=== PATIENT | male | born 1950 | race Caucasian/White ===

== ENCOUNTER 2017-02-14 12:59 | Outpatient (CLI) | payer MEDICARE | END 2017-02-14 13:00 | disposition home or self-care (01) | DX: M25.571 Pain in right ankle and joints of right foot (principal) ==

== ENCOUNTER 2017-04-18 13:50 | Outpatient (CLI) | payer MEDICARE | END 2017-04-18 13:51 | disposition home or self-care (01) | LOC: RT.S 13:50 | PROVIDERS: ATTEND Nurse Practitioner Family | DX: S82.39 Other fracture of lower end of tibia (principal) | CPT/HCPCS: 93005 ==

== ENCOUNTER 2017-04-18 14:43 | Outpatient (CLI) | payer MEDICARE | END 2017-04-18 14:44 | disposition home or self-care (01) | DX: S82.39 Other fracture of lower end of tibia (principal) ==

== ENCOUNTER 2017-04-18 14:48 | Outpatient (CLI) | payer MEDICARE | END 2017-04-18 23:59 | disposition home or self-care (01) | DX: S82.39 Other fracture of lower end of tibia (principal) ==

== ENCOUNTER 2017-05-29 06:13 | Day surgery (SDC) | payer MEDICARE ==
[2017-05-29] MEDS ORDERED: ceFAZolin 2 GM/50 ML 50 ML IV ONE (06:33)
[2017-05-29 06:46] VITALS: BP 161/99
[2017-05-29] MEDS ORDERED: LACTATED RINGERS 1,000 ML IV ONE (07:00)
== END 2017-05-29 06:14 | disposition home or self-care (01) ==
LOC: SDS 06:13
PROVIDERS: ATTEND Orthopaedic Surgery
DX: M19.171 Post-traumatic osteoarthritis, right ankle and foot (principal); T14.90 Injury, unspecified; Z53.8 Procedure and treatment not carried out for other reasons
CPT/HCPCS: J0690; J7120

== ENCOUNTER 2017-06-15 06:20 | Day surgery (SDC) | payer MEDICARE ==
[2017-06-15] MEDS ORDERED: LACTATED RINGERS 1,000 ML IV ONE (06:36)
[2017-06-15] MEDS ORDERED: ceFAZolin 2 GM/50 ML 50 ML IV ONE (06:38)
[2017-06-15] MEDS ORDERED: LIDOCAINE 2% URO-JET 5 ML SYRINGE UR ONE (08:40)
[2017-06-15] MEDS ORDERED: fentaNYL 100 MCG/2 ML VIAL IVP ONE (09:00)
[2017-06-15] MEDS ORDERED: METOPROLOL 5 MG/5 ML VIAL IVP ONE (09:00)
[2017-06-15] MEDS ORDERED: MIDAZOLAM 2 MG/2 ML VIAL IVP ONE (09:00)
[2017-06-15 10:30] VITALS: BP 177/104
== END 2017-06-15 06:21 | disposition home or self-care (01) ==
LOC: SDS 06:20
PROVIDERS: ATTEND Orthopaedic Surgery
PROC: 0SGF0ZZ (ICD-10-PCS; principal; 2017-06-15 07:30)
DX: M19.171 Post-traumatic osteoarthritis, right ankle and foot (principal); Z53.09 Procedure and treatment not carried out because of other contraindication; R03.0 Elevated blood-pressure reading, without diagnosis of hypertension
CPT/HCPCS: 27870; J0690; J7120

== ENCOUNTER 2017-06-21 15:25 | Outpatient (CLI) | payer MEDICARE ==
[2017-06-21 17:55] LABS: BASOPHILS % (AUTO) 0.5 %; EOSINOPHILS # (AUTO) 0.1 10^3/uL (0.0-0.7); EOSINOPHILS % (AUTO) 1.6 %; HCT - HEMATOCRIT 42.3 % (42.0-52.0); HGB - HEMOGLOBIN 14.6 g/dL (14.0-18.0); LYMPHOCYTES # (AUTO) 0.7 10^3/uL (1.5-3.5); MEAN CORPUSCULAR HEMOGLOBIN 32.1 pg (27.0-31.0); MEAN CORPUSCULAR HGB CONC 34.5 g/dL (32.0-36.0); MEAN CORPUSCULAR VOLUME 92.9 fL (80.0-94.0); MONOCYTES # (AUTO) 0.3 10^3/uL (0.0-1.0); MONOCYTES % (AUTO) 7.2 %; NEUTROPHILS % (AUTO) 73.7 %; RED BLOOD COUNT 4.55 10^6/uL (4.70-6.10); RED CELL DISTRIBUTION WIDTH 14.5 % (12.0-15.0)
[2017-06-21 18:42] LABS: ALBUMIN/GLOBULIN RATIO 1.2 (1.0-2.2); BILIRUBIN,TOTAL 1.6 mg/dL (0.2-1.0); CALCIUM 8.5 mg/dL (8.5-10.3); CREATININE 0.6 mg/dL (0.6-1.2); POTASSIUM 3.4 mmol/L (3.5-5.0); TOTAL PROTEIN 6.9 g/dL (6.7-8.2)
== END 2017-06-21 15:26 | disposition home or self-care (01) ==
LOC: LAB.F 15:25
PROVIDERS: ATTEND Nurse Practitioner Family
DX: I10 Essential (primary) hypertension (principal); Z12.5 Encounter for screening for malignant neoplasm of prostate
CPT/HCPCS: 36415; 80053; 85025; G0103; 84153

== ENCOUNTER 2017-07-17 07:32 | Outpatient (CLI) | payer MEDICARE | END 2017-07-17 07:33 | disposition critical access hospital (66) | LOC: EMS 07:32 | PROVIDERS: ATTEND Surgery | DX: R53.1 Weakness (principal); R50.9 Fever, unspecified; M79.604 Pain in right leg | CPT/HCPCS: A0425; A0429 ==

== ENCOUNTER 2017-07-17 07:47 | Inpatient (IN) | payer MEDICARE ==
--- NOTE | 2017-07-17 08:06 | ED Physician Documentation ---
PD HPI URI - Stated complaint Stated Complaint: ANKLE PX - Chief complaint Chief Complaint: Ext Problem - History obtained from History obtained from: Patient, EMS - History of Present Illness Timing - onset: How many days ago (3) Timing duration: Days (3) Timing details: Gradual onset, Still present Associated symptoms: Fever, Chills, Nasal congestion, Rhinorrhea, Dry cough, Dyspnea Contributing factors: Sick contact Worsened by: Activity Similar symptoms before: Diagnosis (URI) Recently seen: Other (The patient is preparing to have surgery done on an ankle. ) Review of Systems Constitutional: reports: Fever, Chills, Myalgias, Fatigue Eyes: denies: Decreased vision Ears: denies: Ear pain Nose: reports: Rhinorrhea / runny nose, Congestion Throat: denies: Sore throat Cardiac: denies: Chest pain / pressure, Palpitations Respiratory: reports: Dyspnea, Cough GI: denies: Nausea, Vomiting, Constipation, Diarrhea : denies: Dysuria, Frequency Skin: denies: Rash Musculoskeletal: reports: Extremity pain, Extremity swelling. denies: Neck pain , Back pain Neurologic: denies: Generalized weakness, Focal weakness PD PAST MEDICAL HISTORY - Past Medical History Past Medical History: Yes Cardiovascular: None Respiratory: None Endocrine/Autoimmune: None GI: GERD : None HEENT: Chronic vision loss Psych: Depression Musculoskeletal: Osteoarthritis Derm: Other - Past Surgical History Past Surgical History: Yes General: Appendectomy Ortho: Other Neuro: Craniotomy - Present Medications Home Medications: Ambulatory Orders Medication Instructions Recorded Confirmed Naproxen Sodium [Aleve] 220 mg PO DAILY PRN 05/24/17 07/17/17 Buspirone HCl 7.5 mg PO BID 07/17/17 07/17/17 Diazepam [Diazepam] 5 mg PO DAILY PRN 07/17/17 07/17/17 Propranolol [Inderal] 20 mg PO QID PRN 07/17/17 07/17/17 - Allergies Allergies/Adverse Reactions: Allergies Allergy/AdvReac Type Severity Reaction Status Date / Time codeine AdvReac Emesis Verified 05/24/17 13:41 - Social History Does the pt smoke?: No Smoking Status: Never smoker PD ED PE NORMAL - Vitals Vital signs reviewed: Yes (febrile and hypertensive) - General General: No acute distress, Well developed/nourished, Other (The patient is slow to respond) - HEENT HEENT: Atraumatic, PERRL, EOMI, Other (both TM's are flush) - Neck Neck: Supple, no meningeal sign, No bony TTP - Cardiac Cardiac: RRR, No murmur - Respiratory Respiratory: No respiratory distress, Other (rhonchi bibasilar) - Abdomen Abdomen: Soft, Non tender - Back Back: No CVA TTP, No spinal TTP - Derm Derm: Normal color, Warm and dry, No rash - Extremities Extremities: No deformity, Other (edema is worse on he right ) - Neuro Neuro: No motor deficit, No sensory deficit - Psych Psych: Other (mood is withdrawn and the affect is flat. ) Results - Vitals Vitals: Vital Signs - 24 hr 07/17/17 07/17/17 07:49 11:05 Temperature 103.1 C H 37.5 C Heart Rate 92 85 Respiratory 22 22 Rate Blood Pressure 175/100 H 161/101 H O2 Saturation 92 93 Oxygen O2 Source Room air - Labs Labs: Laboratory Tests 07/17/17 07/17/17 07/17/17 09:37 09:37 09:37 WBC 12.4 H RBC 4.76 Hgb 15.1 Hct 43.2 MCV 90.9 MCH 31.7 H MCHC 34.9 RDW 14.9 Plt Count 73 L MPV 6.2 L Neut # RN RESOURCE NURSE Lymph # RN RESOURCE NURSE [place] # RN RESOURCE NURSE Eos # RN RESOURCE NURSE Baso # RN RESOURCE NURSE Absolute Nucleated RBC RN RESOURCE NURSE Total Counted 100 Band Neuts % (Manual) 11 H Reactive Lymphs % (Man) 1 Nucleated RBC % RN RESOURCE NURSE Neutrophils # (Manual) 11.7 H Lymphocytes # (Manual) 0.2 L Monocytes # (Manual) 0.5 Differential Comment MANUAL DIFFERENTIAL WBC Morphology 1+ VACUOLATION Sodium 129 L Potassium 3.0 L Chloride 96 L Carbon Dioxide 21 Anion Gap 12.0 BUN 7 Creatinine 0.7 Estimated GFR (MDRD) 112 Glucose 107 H Calcium 8.8 Total Bilirubin 3.4 H AST 49 H ALT 20 Alkaline Phosphatase 89 Troponin I < 0.04 Total Protein 7.4 Albumin 3.9 Globulin 3.5 Albumin/Globulin Ratio 1.1 Lipase 17 L Urine Color Urine Clarity Urine pH Ur Specific [place] Urine Protein Urine Glucose (UA) Urine Ketones Urine Occult Blood Urine Nitrite Urine Bilirubin Urine Urobilinogen Ur Leukocyte Esterase Ur Microscopic Review Urine Culture Comments 07/17/17 11:00 WBC RBC Hgb Hct MCV MCH MCHC RDW Plt Count MPV Neut # Lymph # [place] # Eos # Baso # Absolute Nucleated RBC Total Counted Band Neuts % (Manual) Reactive Lymphs % (Man) Nucleated RBC % Neutrophils # (Manual) Lymphocytes # (Manual) Monocytes # (Manual) Differential Comment WBC Morphology Sodium Potassium Chloride Carbon Dioxide Anion Gap BUN Creatinine Estimated GFR (MDRD) Glucose Calcium Total Bilirubin AST ALT Alkaline Phosphatase Troponin I Total Protein Albumin Globulin Albumin/Globulin Ratio Lipase Urine Color YELLOW Urine Clarity CLEAR Urine pH 6.0 Ur Specific [place] 1.010 Urine Protein NEGATIVE Urine Glucose (UA) NEGATIVE Urine Ketones TRACE Urine Occult Blood NEGATIVE Urine Nitrite NEGATIVE Urine Bilirubin NEGATIVE Urine Urobilinogen 4 H Ur Leukocyte Esterase NEGATIVE Ur Microscopic Review NOT INDICATED Urine Culture Comments NOT INDICATED - Rads (name of study) 2 view chest Radiology: Prelim report reviewed (Impression: 1. Superior right mediastinal density not previously seen. Further evaluation could be with CT. 2. Lower lobe infiltrates seen on lateral view not well seen on frontal view possibly right-sided.), EMP read indepedently, See rad report Procedures - IVC sono (time) 0755 Bedside IVC sono: IVC measures (cm) (0.99), IVC collapsed c insp (cm) (complete) , Dehydration PD MEDICAL DECISION MAKING - ED course Complexity details: reviewed old records, reviewed results, re-evaluated patient , considered differential, d/w patient, d/w family ED course: 67-year-old male with a history of hypertension and GERD has developed a fever and confusion has pneumonia on his x-ray the family has been sick with URI. The patient has fever elevated white count infiltrate and confusion admission is soft. Departure - Departure Disposition: [facility] DC/Xfer Clinical Impression: Pneumonia Qualifiers: Pneumonia type: due to unspecified organism Laterality: right Lung location: unspecified part of lung Qualified Code(s): J18.9 - Pneumonia, unspecified organism Condition: Stable Discharge Date/Time: 07/17/17 12:08
[2017-07-17] MEDS ORDERED: SODIUM CHLORIDE 0.9% 1,000 ML IV ONE ×2 (08:31→11:04)
--- NOTE | 2017-07-17 09:24 | XRAY Preliminary Report ---
Exam: XR Chest 2 View PA/LAT IMPRESSION: 1. Superior right mediastinal density not previously seen. Further evaluation could be with CT. 2. Lower lobe infiltrates seen on the lateral view not well-seen on frontal view possibly right-sided [facility] SITE ID: [id number]
--- NOTE | 2017-07-17 09:26 | XRAY Report ---
EXAM: CHEST RADIOGRAPHY EXAM DATE: 07/17/2017 09:06 AM. CLINICAL HISTORY: Cough bibasilar rhonchi, fever. COMPARISON: 04/30/2013. TECHNIQUE: 2 views. FINDINGS: Lungs/Pleura: lower lobe infiltrate seen on the lateral view No pleural effusion. No pneumothorax. No rmal volumes. Mediastinum: Heart size normal. Mildly ectatic aorta. Superior right mediastinal density. Other: DJD spine. Compressions mid T-spine IMPRESSION: 1. Superior right mediastinal density not previously seen. Further evaluation could be with CT. 2. Lower lobe infiltrates seen on the lateral view not well-seen on frontal view possibly right-sided [facility] Referring Provider Line: [phone] SITE ID: [id number]
[2017-07-17 09:44] LABS: BASOPHILS % (AUTO) 0.3 %; HCT - HEMATOCRIT 43.2 % (42.0-52.0); HGB - HEMOGLOBIN 15.1 g/dL (14.0-18.0); LYMPHOCYTES % (AUTO) 2.7 %; MEAN CORPUSCULAR HEMOGLOBIN 31.7 pg (27.0-31.0); MEAN CORPUSCULAR HGB CONC 34.9 g/dL (32.0-36.0); MEAN CORPUSCULAR VOLUME 90.9 fL (80.0-94.0); MEAN PLATELET VOLUME 6.2 fL (7.4-11.4); MONOCYTES % (AUTO) 4.5 %; NEUTROPHILS % (AUTO) 92.5 %; RED BLOOD COUNT 4.76 10^6/uL (4.70-6.10); RED CELL DISTRIBUTION WIDTH 14.9 % (12.0-15.0); UNCORRECTED WHITE BLOOD COUNT 12.4 x10^3/uL; WHITE BLOOD COUNT 12.4 x10^3/uL (4.8-10.8)
[2017-07-17 09:59] LABS: ALBUMIN/GLOBULIN RATIO 1.1 (1.0-2.2); BILIRUBIN,TOTAL 3.4 mg/dL (0.2-1.0); CALCIUM 8.8 mg/dL (8.5-10.3); CREATININE 0.7 mg/dL (0.6-1.2); TOTAL PROTEIN 7.4 g/dL (6.7-8.2)
[2017-07-17 10:08] LABS: BAND NEUTROPHILS % (MANUAL) 11 %; LYMPHOCYTES % (MANUAL) 1 %; NEUTROPHILS % (MANUAL) 83 %; TOTAL CELLS COUNTED 100
[2017-07-17 10:09] LABS: NP AUTO DIFFERENTIAL? YES; NP MAN DIFFERENTIAL? NO; WBC MORPHOLOGY (MULTIPLE) 1+ VACUOLATION (NORMAL)
[2017-07-17] MEDS ORDERED: cefTRIAXone 1 GM in SODIUM CHLORIDE 0.9% MINIBAG 100 ML IV STA (11:04)
[2017-07-17] MEDS ORDERED: AZITHROMYCIN INJ 500 MG in SODIUM CHLORIDE 0.9% 250 ML IV STA (11:04)
[2017-07-17 11:13] LABS: BILIRUBIN,URINE NEGATIVE (NEGATIVE)
[2017-07-17 11:16] LABS: UA CHARGE (STRIP ONLY) YES; UR CULTURE IF IND NOT INDICATED
[2017-07-17] MEDS ORDERED: cefTRIAXone 1 GM VIAL ONE (11:16)
[2017-07-17] MEDS ORDERED: SODIUM CHLORIDE FLUSH 0.9% 10 ML SYRINGE IVP PRN (11:24)
[2017-07-17] MEDS: ENOXAPARIN 40 MG/0.4 ML SYRINGE SUBQ SCH (12:38)
[2017-07-17] MEDS: SODIUM CHLORIDE 0.9% 1,000 ML IV SCH ×2 (12:39→22:36)
[2017-07-17] MEDS: SODIUM CHLORIDE FLUSH 0.9% 10 ML SYRINGE IVP SCH ×2 (12:40→21:18)
[2017-07-17] MEDS ORDERED: diazePAM 5 MG TABLET PO PRN (12:44)
[2017-07-17] MEDS ORDERED: MULTIVITAMIN 10 ML in SODIUM CHLORIDE 0.9% 1,000 ML IV SCH (13:00)
[2017-07-18] MEDS ORDERED: KETOROLAC 30 MG/ML VIAL IVP SCH (00:10)
[2017-07-18] MEDS: SODIUM CHLORIDE FLUSH 0.9% 10 ML SYRINGE IVP SCH ×3 (03:28→21:44)
[2017-07-18 05:43] LABS: BASOPHILS % (AUTO) 0.3 %; EOSINOPHILS % (AUTO) 0.1 %; HCT - HEMATOCRIT 40.4 % (42.0-52.0); HGB - HEMOGLOBIN 14.1 g/dL (14.0-18.0); LYMPHOCYTES # (AUTO) 0.8 10^3/uL (1.5-3.5); LYMPHOCYTES % (AUTO) 7.4 %; MEAN CORPUSCULAR HEMOGLOBIN 32.3 pg (27.0-31.0); MEAN CORPUSCULAR HGB CONC 34.9 g/dL (32.0-36.0); MEAN CORPUSCULAR VOLUME 92.6 fL (80.0-94.0); MEAN PLATELET VOLUME 6.8 fL (7.4-11.4); MONOCYTES # (AUTO) 0.3 10^3/uL (0.0-1.0); MONOCYTES % (AUTO) 3.4 %; NEUTROPHILS # (AUTO) 9.1 10^3/uL (1.5-6.6); NEUTROPHILS % (AUTO) 88.8 %; RED BLOOD COUNT 4.37 10^6/uL (4.70-6.10); RED CELL DISTRIBUTION WIDTH 15.5 % (12.0-15.0); UNCORRECTED WHITE BLOOD COUNT 10.3 x10^3/uL; WHITE BLOOD COUNT 10.3 x10^3/uL (4.8-10.8)
[2017-07-18 05:46] LABS: INR 1.4 (0.8-1.2); PT - PROTHROMBIN TIME 16.3 secs (9.9-12.6)
[2017-07-18 05:56] LABS: ALBUMIN/GLOBULIN RATIO 0.9 (1.0-2.2); BILIRUBIN,TOTAL 2.7 mg/dL (0.2-1.0); CALCIUM 7.9 mg/dL (8.5-10.3); CREATININE 0.7 mg/dL (0.6-1.2); POTASSIUM 2.7 mmol/L (3.5-5.0)
[2017-07-18] MEDS: POLYETHYLENE GLYCOL 3350 17 GM PACKET PO SCH (07:35)
[2017-07-18] MEDS: ENOXAPARIN 40 MG/0.4 ML SYRINGE SUBQ SCH ×2 (07:35→08:59)
[2017-07-18] MEDS ORDERED: POTASSIUM CHLOR 10 MEQ/100 ML 10 MEQ/100 ML BAG IV ONE (07:39)
[2017-07-18] MEDS ORDERED: POTASSIUM CHLORIDE 20 MEQ TABLET PO SCH (08:00)
[2017-07-18] MEDS ORDERED: diazePAM 5 MG TABLET PO PRN (08:03)
[2017-07-18] MEDS ORDERED: NAPROXEN 250 MG TABLET PO PRN (09:00)
[2017-07-18] MEDS ORDERED: PROPRANOLOL 10 MG TABLET PO PRN (09:01)
[2017-07-18] MEDS: cefTRIAXone 1 GM in SODIUM CHLORIDE 0.9% MINIBAG 100 ML IV SCH (09:03)
[2017-07-18] MEDS: PRENATAL VITAMIN TABLET PO SCH (09:04)
[2017-07-18] MEDS: busPIRone 5 MG TABLET PO SCH ×2 (09:04→21:44)
[2017-07-18] MEDS: AZITHROMYCIN 250 MG TABLET PO SCH (09:04)
[2017-07-18] MEDS: THIAMINE 100 MG TABLET PO SCH (09:04)
--- NOTE | 2017-07-18 11:04 | XRAY Report ---
THREE-VIEW RIGHT ANKLE: 07/18/2017 CLINICAL INDICATION: Pain. FINDINGS: AP, lateral, oblique views of the right ankle are compared to previous plain films of 09/09 and MRI of 02/14/2017. AP, lateral, oblique views of the right ankle demonstrate old, healed tibia and fibula fractures, wit h stable osteoarthritis of the mortise and bony fusion of the distal tibiofibular joint. There is no evidence of acute fracture. No radiopaque foreign body is seen in the soft tissues. IMPRESSION: STABLE OLD, HEALED FRACTURES AND OSTEOARTHRITIS. NO EVIDENCE OF ACUTE FRACTURE. JOB #: [id number] EXT JOB #:[id number]
--- NOTE | 2017-07-18 11:58 | PROVIDER PROGRESS NOTE ---
Subjective - Prog Note Date Prog Note Date: 07/18/17 - Subjective Pt reports feeling: Improved Subjective: pt report he feel better, no fever, chill, SOB. pt report he had 8 surgery on his right lower extremity, 3 for knee replacement and 5 for ankle operations. pt report he still feels some pain at his right ankle. Current Medications - Current Medications Current Medications: Active Medications Azithromycin (Zithromax) 250 mg PO DAILY [facility] Last Admin: 07/18/17 09:04 Dose: 250 mg Buspirone HCl (Buspar) 7.5 mg PO BID [facility] Last Admin: 07/18/17 09:04 Dose: 7.5 mg Diazepam (Valium) 5 mg PO Q1H PRN; Protocol PRN Reason: CIWA > 8 Last Admin: 07/17/17 18:07 Dose: 5 mg Diazepam (Valium) 5 mg PO DAILY PRN PRN Reason: Anxiety Enoxaparin Sodium (Lovenox) 30 mg SUBQ DAILY [facility] Last Admin: 07/18/17 08:59 Dose: Not Given Ceftriaxone Sodium 1 gm/ (Sodium Chloride) 100 mls @ 200 mls/hr IV DAILY [facility] Last Infusion: 07/18/17 09:35 Dose: Infused Naproxen (Naprosyn) 250 mg PO DAILY PRN PRN Reason: Breakthrough Pain Last Admin: 07/18/17 09:58 Dose: 250 mg Polyethylene Glycol (Miralax) 17 gm PO DAILY [facility] Last Admin: 07/18/17 07:35 Dose: Not Given Multivit/Folic Acid/Iron (Trinatal Rx 1) 1 tab PO DAILY [facility] Last Admin: 07/18/17 09:04 Dose: 1 tab Propranolol HCl (Inderal) 20 mg PO QID PRN PRN Reason: Anxiety Sodium Chloride (Normal Saline Flush 0.9%) 10 ml IVP PRN PRN PRN Reason: NEEDED PER PROVIDER ORDERS Sodium Chloride (Normal Saline Flush 0.9%) 10 ml IVP Q8HR [facility] Last Admin: 07/18/17 03:28 Dose: Not Given Thiamine HCl (Vitamin B-1) 100 mg PO DAILY [facility] Last Admin: 07/18/17 09:04 Dose: 100 mg Naproxen Sodium [Aleve] 220 mg PO DAILY PRN 17 Buspirone HCl 7.5 mg PO BID 07/17/17 Diazepam [Diazepam] 5 mg PO DAILY PRN 07/17/17 Propranolol [Inderal] 20 mg PO QID PRN 07/17/17 Objective - Vital Signs/Intake & Output Reviewed Vital Signs: Yes Vital Signs: Vital Signs x48h Temp Pulse Resp BP Pulse Ox 07/18/17 08:16 36.9 C 89 18 115/71 95 07/18/17 05:00 37.4 C 90 16 105/74 95 Intake & Output: Intake & Output 07/15/17 07/16/17 07/17/17 07/18/17 23:59 23:59 23:59 23:59 Intake Total 2891.667 1350 Output Total 2050 450 Balance 841.667 900 - Objective General Appearance: positive: No acute distress, Alert. negative: Lethargic Eyes Bilateral: positive: Normal inspection, PERRL, EOMI, No lid inflammation, Conjunctivae nml ENT: positive: ENT inspection nml, Pharynx nml, No signs of dehydration. negative: Purulent nasal drainage, Pharyngeal erythema, Oral lesions Neck: positive: Nml inspection, Thyroid nml, No JVD, Trachea midline. negative : Thyromegaly, Lymphadenopathy (R), Lymphadenopathy (L), Stiff neck, Carotid bruit, Swelling/bruising, Tracheal deviation Cardiovascular: positive: Regular rate & rhythm, No murmur, No gallop. negative : Irregularly irregular, Extrasystoles, Tachycardia, Bradycardia, Systolic murmur, Diastolic murmur Peripheral Pulses: 2+ Radial (R), 2+ Radial (L), 2+ Dorsalis pedis (R), 2+ Dorsalis pedis (L) Abdomen: positive: Non-tender, No organomegaly, Nml bowel sounds, No distention. negative: Tenderness, Guarding, Rebound Back: positive: Nml inspection. negative: CVA tenderness (R), CVA tenderness (L ) Skin: positive: Color nml, No rash, Warm, Dry. negative: Cyanosis, Diaphoresis , Pallor Extremities: positive: Non-tender, Other (limited ROM at right ankle). negative : Pedal edema, Calf tenderness, Sharon's sign/cords Neurologic/Psychiatric: positive: Oriented x3, Motor nml, Sensation nml, Mood/ affect nml. negative: Sensory loss, Facial droop, Slurred/abnml speech, Depressed mood/affect - Lab Results Fish Bones: 07/18/17 05:10 07/18/17 05:10 Other Labs: Lab Results x24hrs 07/18/17 07/18/17 07/18/17 Range/Units 09:00 05:10 05:10 WBC (4.8-10.8) x10^3/uL RBC (4.70-6.10) 10^6/uL Hgb (14.0-18.0) g/dL Hct (42.0-52.0) % MCV (80.0-94.0) fL MCH (27.0-31.0) pg MCHC (32.0-36.0) g/dL RDW (12.0-15.0) % Plt Count (130-450) 10^3/uL MPV (7.4-11.4) fL Neut # (1.5-6.6) 10^3/uL Lymph # (1.5-3.5) 10^3/uL [facility] # (0.0-1.0) 10^3/uL Eos # (0.0-0.7) 10^3/uL Baso # (0.0-0.1) 10^3/uL Absolute Nucleated RBC x10^3/uL Nucleated RBC % /100WBC PT 16.3 H (9.9-12.6) secs INR 1.4 H (0.8-1.2) Sodium 132 L (135-145) mmol/L Potassium 2.7 L (3.5-5.0) mmol/L Chloride 101 (101-111) mmol/L Carbon Dioxide 23 (21-32) mmol/L Anion Gap 8.0 (6-13) BUN 12 (6-20) mg/dL Creatinine 0.7 (0.6-1.2) mg/dL Estimated GFR (MDRD) 112 (>89) Glucose 96 (70-100) mg/dL Calcium 7.9 L (8.5-10.3) mg/dL Total Bilirubin 2.7 H (0.2-1.0) mg/dL Direct Bilirubin 0.8 H (0.1-0.5) mg/dL AST 34 (10-42) IU/L ALT 17 (10-60) IU/L Alkaline Phosphatase 59 (42-121) IU/L Total Protein 6.0 L (6.7-8.2) g/dL Albumin 2.9 L (3.2-5.5) g/dL Globulin 3.1 (2.1-4.2) g/dL Albumin/Globulin Ratio 0.9 L (1.0-2.2) Influenza A (Rapid) (Negative) Influenza B (Rapid) (Negative) Influenza Types A,B Ag 07/18/17 07/17/17 Range/Units 05:10 12:05 WBC 10.3 (4.8-10.8) x10^3/uL RBC 4.37 L (4.70-6.10) 10^6/uL Hgb 14.1 (14.0-18.0) g/dL Hct 40.4 L (42.0-52.0) % MCV 92.6 (80.0-94.0) fL MCH 32.3 H (27.0-31.0) pg MCHC 34.9 (32.0-36.0) g/dL RDW 15.5 H (12.0-15.0) % Plt Count 77 L (130-450) 10^3/uL MPV 6.8 L (7.4-11.4) fL Neut # 9.1 H (1.5-6.6) 10^3/uL Lymph # 0.8 L (1.5-3.5) 10^3/uL [facility] # 0.3 (0.0-1.0) 10^3/uL Eos # 0.0 (0.0-0.7) 10^3/uL Baso # 0.0 (0.0-0.1) 10^3/uL Absolute Nucleated RBC 0.00 x10^3/uL Nucleated RBC % 0.0 /100WBC PT (9.9-12.6) secs INR (0.8-1.2) Sodium (135-145) mmol/L Potassium (3.5-5.0) mmol/L Chloride (101-111) mmol/L Carbon Dioxide (21-32) mmol/L Anion Gap (6-13) BUN (6-20) mg/dL Creatinine (0.6-1.2) mg/dL Estimated GFR (MDRD) (>89) Glucose (70-100) mg/dL Calcium (8.5-10.3) mg/dL Total Bilirubin (0.2-1.0) mg/dL Direct Bilirubin (0.1-0.5) mg/dL AST (10-42) IU/L ALT (10-60) IU/L Alkaline Phosphatase (42-121) IU/L Total Protein (6.7-8.2) g/dL Albumin (3.2-5.5) g/dL Globulin (2.1-4.2) g/dL Albumin/Globulin Ratio (1.0-2.2) Influenza A (Rapid) Negative (Negative) Influenza B (Rapid) Negative (Negative) Influenza Types A,B Ag - Assessment/Plan - Problem List (1) Pneumonia Impression: CXR reveal right up and left lower lob pneumonia, with fever, cough. Pt's family had URI recently. antibiotics: azithyromycin and rocephin. pt is from home blood and sputum culture, will follow up vital monitor closely. Qualifiers: Pneumonia type: due to unspecified organism Laterality: right Lung location: unspecified part of lung Qualified Code(s): J18.9 - Pneumonia, unspecified organism (2) Confusion Impression: pt is much better, alert, and much more clear mind today. it may drive from infection, URI, or alcoholic abuse neurological check ammonia, B12, TSH check closely monitor with vital, tele (3) Alcohol abuse Impression: pt report he still continue to have alcoholic problem consult and advise pt quit on CIMA protocol B1, folic acid, multiple vitamin (4) HTN (hypertension) Impression: stable, resume of home meds (5) Right ankle pain Impression: pt report he had 5 surgery on right ankle, but still feel some pain Xray on right ankle pain control, resume home pain meds PT/OT evaluation and treatment, will follow up (6) Depression Impression: stable, resume home meds (7) Osteoarthritis Impression: chronic condition, PT/OT evaluation and treatment pain control encourage pt to ambulate (8) Chronic GERD Impression: pepcid daily
[2017-07-18] MEDS ORDERED: FAMOTIDINE 20 MG TABLET PO SCH (13:00)
[2017-07-18] MEDS ORDERED: FOLIC ACID 1 MG TABLET PO SCH (13:00)
[2017-07-19] MEDS ORDERED: KETOROLAC 30 MG/ML VIAL IVP PRN (00:07)
[2017-07-19] MEDS: SODIUM CHLORIDE FLUSH 0.9% 10 ML SYRINGE IVP SCH ×2 (05:47→07:53)
[2017-07-19 05:52] LABS: BASOPHILS % (AUTO) 0.4 %; EOSINOPHILS # (AUTO) 0.1 10^3/uL (0.0-0.7); EOSINOPHILS % (AUTO) 1.2 %; HCT - HEMATOCRIT 38.8 % (42.0-52.0); HGB - HEMOGLOBIN 13.3 g/dL (14.0-18.0); LYMPHOCYTES # (AUTO) 0.7 10^3/uL (1.5-3.5); LYMPHOCYTES % (AUTO) 13.1 %; MEAN CORPUSCULAR HEMOGLOBIN 31.9 pg (27.0-31.0); MEAN CORPUSCULAR HGB CONC 34.3 g/dL (32.0-36.0); MEAN CORPUSCULAR VOLUME 93.2 fL (80.0-94.0); MEAN PLATELET VOLUME 6.7 fL (7.4-11.4); MONOCYTES # (AUTO) 0.3 10^3/uL (0.0-1.0); MONOCYTES % (AUTO) 5.1 %; NEUTROPHILS # (AUTO) 4.5 10^3/uL (1.5-6.6); NEUTROPHILS % (AUTO) 80.2 %; RED BLOOD COUNT 4.17 10^6/uL (4.70-6.10); RED CELL DISTRIBUTION WIDTH 15.5 % (12.0-15.0); UNCORRECTED WHITE BLOOD COUNT 5.6 x10^3/uL; WHITE BLOOD COUNT 5.6 x10^3/uL (4.8-10.8)
[2017-07-19 06:02] LABS: BILIRUBIN,TOTAL 1.1 mg/dL (0.2-1.0); CALCIUM 8.5 mg/dL (8.5-10.3); CREATININE 0.8 mg/dL (0.6-1.2); MAGNESIUM 1.7 mg/dL (1.7-2.8); POTASSIUM 3.2 mmol/L (3.5-5.0); TOTAL PROTEIN 5.8 g/dL (6.7-8.2)
[2017-07-19] MEDS: POLYETHYLENE GLYCOL 3350 17 GM PACKET PO SCH (07:34)
[2017-07-19] MEDS: ENOXAPARIN 40 MG/0.4 ML SYRINGE SUBQ SCH (07:34)
[2017-07-19] MEDS ORDERED: POTASSIUM CHLOR 10 MEQ/100 ML 10 MEQ/100 ML BAG IV ONE (08:00)
[2017-07-19] MEDS ORDERED: POTASSIUM CHLORIDE 20 MEQ TABLET PO SCH (08:00)
[2017-07-19] MEDS ORDERED: FAMOTIDINE 20 MG TABLET PO SCH (09:00)
[2017-07-19] MEDS ORDERED: FOLIC ACID 1 MG TABLET PO SCH (09:00)
[2017-07-19] MEDS: PRENATAL VITAMIN TABLET PO SCH (09:15)
[2017-07-19] MEDS: THIAMINE 100 MG TABLET PO SCH (09:15)
[2017-07-19] MEDS: AZITHROMYCIN 250 MG TABLET PO SCH (09:15)
[2017-07-19] MEDS: cefTRIAXone 1 GM in SODIUM CHLORIDE 0.9% MINIBAG 100 ML IV SCH (09:15)
[2017-07-19] MEDS: busPIRone 5 MG TABLET PO SCH (09:21)
[2017-07-19 12:07] VITALS: BP 130/78
--- NOTE | 2017-07-19 12:14 | Discharge Plan ---
Discharge Plan Disposition: Home, Self Care Condition: Stable Prescriptions: Amox/Clav 500/125 [Augmentin] 1 each PO Q12H #12 tablet Azithromycin 250 mg PO DAILY #3 tablet Diet: Regular Activity Restrictions: Activity as Tolerated Shower Restrictions: No Assistance Devices: Walker Weight Bearing: Full Weight Additional Instructions or Follow Up instructions: May see PCP in one week. Pt is advised to quit alcohol, Should symptoms return or worsen, call 911 or go to the nearest ER for the help. Follow-Up Care: Outpatient Rehab - PT, Outpatient Rehab - OT, [facility] [place] Clinic - Medical No Smoking: If you smoke, Please STOP! Call for help. Follow-up with: Ada Wyman ARNP [Primary Care Provider] -
--- NOTE | 2017-07-19 12:23 | DISCHARGE SUMMARY ---
Discharge Summary Admit Date: 07/17/17 Discharge Date: 07/19/17 Discharging Provider: CARLSON Primary Care Provider: Ada Leigh Code Status: Attempt Resuscitation Condition at Discharge: Stable Discharge Disposition: 01 Home, Self Care Discharge Facility Name: home - DIAGNOSES Admission Diagnoses: (1) Pneumonia (2) Confusion (3) Alcohol abuse (4) HTN (hypertension) (5) Right ankle pain (6) Depression (7) Osteoarthritis (8) Chronic GERD Discharge Diagnoses with Status of Each Condition: (1) Pneumonia pt has SO2 95%-98% on room air, without cough, fever, chill, SOB. WBC is down to 5.6. Pt is advised to continue the antibiotics course, see PCP and closely to monitored. (2) Confusion resolved (3) Alcohol abuse pt is advised quitting alcoholic abuse. pt state he will quit the alcohol (4) HTN (hypertension) stable, continue managed by PCP (5) Right ankle pain chronic pain. no acute fracture by Xray, managed by pain meds and PCP (6) Depression stable, managed by PCP (7) Osteoarthritis stable (8) Chronic GERD stable - HPI History of Present Illness: pt was admitted by , please refer from her HPI on 07/17/17 - HOSPITAL COURSE Hospital Course: Pt was admitted for pneumonia and confusion. Pt was found to have pneumonia in image study. pt was treated with IV antibiotics and fluid hydration. Pt continue to get improved. Today pt had SO2 95-98% on room air, without fever, chill, cough, SOB. pt state he want to go to home today. Pt continue to drink alcohol in the home. Pt is on [facility] protocol. Pt is alert and oriented after treatment in the hospital. Pt is advised to quit the alcohol. pt state he will do that. - ALLERGIES Allergies/Adverse Reactions: Allergies Allergy/AdvReac Type Severity Reaction Status Date / Time codeine AdvReac Emesis Verified 05/24/17 13:41 - MEDICATIONS Home Medications: Ambulatory Orders Medication Instructions Recorded Confirmed Naproxen Sodium [Aleve] 220 mg PO DAILY PRN 05/24/17 07/17/17 Buspirone HCl 7.5 mg PO BID 07/17/17 07/17/17 Diazepam 5 mg PO DAILY PRN 07/17/17 07/17/17 Propranolol [Inderal] 20 mg PO QID PRN 07/17/17 07/17/17 Amox/Clav 500/125 [Augmentin] 1 each PO Q12H #12 tablet 07/19/17 Azithromycin 250 mg PO DAILY #3 tablet 07/19/17 - PHYSICAL EXAM AT DISCHARGE General Appearance: positive: No acute distress, Alert. negative: Lethargic Eyes Bilateral: positive: Normal inspection, PERRL, EOMI, No lid inflammation, Conjunctivae nml ENT: positive: ENT inspection nml, Pharynx nml, No signs of dehydration. negative: Purulent nasal drainage, Pharyngeal erythema, Oral lesions Neck: positive: Nml inspection, Thyroid nml, Trachea midline. negative: Thyromegaly, Lymphadenopathy (R), Lymphadenopathy (L), Stiff neck, Carotid bruit , Swelling/bruising, Tracheal deviation Respiratory: positive: Chest non-tender, No respiratory distress, Breath sounds nml. negative: Wheezes, Rales, Rhonchi Cardiovascular: positive: Regular rate & rhythm, No murmur, No gallop. negative : Irregularly irregular, Extrasystoles, Tachycardia, Bradycardia, Systolic murmur, Diastolic murmur Peripheral Pulses: positive: 2+ Abdomen: positive: Non-tender, Nml bowel sounds, No distention. negative: Tenderness, Guarding, Rebound Back: positive: Nml inspection. negative: CVA tenderness (R), CVA tenderness (L ) Skin: positive: Color nml, No rash, Warm, Dry. negative: Cyanosis, Diaphoresis , Pallor, Skin rash, Decubitus Extremities: positive: Non-tender, Full ROM, Nml appearance. negative: Pedal edema, Calf tenderness, Joint swelling, Sharon's sign/cords Neurologic/Psychiatric: positive: Oriented x3, Sensation nml, Mood/affect nml. negative: Sensory loss, Facial droop, Slurred/abnml speech, Depressed mood/ affect - LABS Result Diagrams: 07/19/17 05:43 07/19/17 05:43 - FOLLOW UP Follow Up: pt is advised to see PCP in one week, and continue to finish the antibiotics course as prescribed. pt is advised to quit alcohol, and pt state he will.
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
== END 2017-07-19 14:40 | disposition home or self-care (01) | DRG 194 ==
LOC: EDUNIT# → ED 07:47 → MS2 11:24
PROVIDERS: ADMIT Nurse Practitioner; ATTEND Nurse Practitioner Gerontology
DX: J18.9 Pneumonia, unspecified organism (principal); E87.1 Hypo-osmolality and hyponatremia; E87.6 Hypokalemia; K21.9 Gastro-esophageal reflux disease without esophagitis; H54.7 Unspecified visual loss; F32.9 Major depressive disorder, single episode, unspecified; M19.90 Unspecified osteoarthritis, unspecified site; R41.0 Disorientation, unspecified; F10.10 Alcohol abuse, uncomplicated; D69.6 Thrombocytopenia, unspecified; I10 Essential (primary) hypertension; G89.29 Other chronic pain; M25.571 Pain in right ankle and joints of right foot; N40.1 Benign prostatic hyperplasia with lower urinary tract symptoms; R35.0 Frequency of micturition; Z91.81 History of falling; Z87.898 Personal history of other specified conditions; Z79.899 Other long term (current) drug therapy
CPT/HCPCS: 36415; 71020; 80053; 81001; 81003; 82140; 82248; 82607; 83690; 83735; 84443; 84484; 85025; 85610; 87040; 87086; 87275; 87276; 96360; 96361; 99284; 99285

== ENCOUNTER 2017-11-17 11:58 | Outpatient (CLI) | payer MEDICARE | END 2017-11-17 11:59 | disposition home or self-care (01) | LOC: LAB 11:58 | PROVIDERS: ATTEND Podiatrist Foot & Ankle Surgery | DX: E55.9 Vitamin D deficiency, unspecified (principal) | CPT/HCPCS: 36415; 82306 ==

== ENCOUNTER 2018-01-24 11:20 | Outpatient (CLI) | payer MEDICARE, OTHER | END 2018-01-24 11:21 | disposition home or self-care (01) | LOC: DI 11:20 | PROVIDERS: ATTEND Registered Nurse | DX: I10 Essential (primary) hypertension (principal); R01.1 Cardiac murmur, unspecified; I51.7 Cardiomegaly | CPT/HCPCS: 93306 ==

== ENCOUNTER 2018-10-15 15:20 | Outpatient (CLI) | payer MEDICARE | END 2018-10-15 15:21 | disposition EMS.NT | LOC: EMS 15:20 | PROVIDERS: ATTEND Surgery ==